=== PATIENT | female | born 1930 | race American Indian/Alaskan Native ===

== ENCOUNTER 2017-11-03 13:50 | Inpatient (IN) | payer MEDICARE, OTHER ==
[2017-11-03 13:59] VITALS: BMI 16.6
--- NOTE | 2017-11-03 14:35 | ED PDOC ---
Arrival/HPI - General Historian: Patient - General Chief Complaint: Abnormal Labs Time Seen by Provider: 11/03/17 14:04 - History of Present Illness Narrative History of Present Illness (Text): 11/03/17 14:10 A 87 year old female, whose past medical history includes diabetes type 2, hypertension, dysphagia, cholecystectomy, EPG (June 2017), and thyroidectomy , is sent to the emergency department for high potassium levels. Patient reports having blood work drawn at home yesterday and results showed patient having high levels of potassium. Patient was instructed to go to the ER immediately. Patient denies any complaints except PEG hurts. [facility] Past Medical History - Provider Review Nursing Documentation Reviewed: Yes - Infectious Disease Hx of Infectious Diseases: None - Cardiac Hx Hypertension: Yes - Endocrine/Metabolic Hx Diabetes Mellitus Type 2: Yes - Gastrointestinal Other/Comment: dysphagia. + gtube - Psychiatric Hx Substance Use: No - Surgical History Hx Cholecystectomy: Yes Hx Thyroidectomy: Yes Other/Comment: gtube insertion - Anesthesia Hx Anesthesia: Yes Hx Anesthesia Reactions: No Hx Malignant Hyperthermia: No Family/Social History - Physician Review Nursing Documentation Reviewed: Yes Family/Social History: No Known Family HX Smoking Status: Former Smoker Hx Alcohol Use: No Hx Substance Use: No Allergies/Home Meds Allergies/Adverse Reactions: Allergies Iodinated Contrast- Oral and IV Dye Allergy (Verified 11/03/17 13:59) RASH Home Medications: Home Meds Medication Instructions Recorded Confirmed No Known Home Med 11/03/17 11/03/17 Review of Systems - Physician Review All systems were reviewed & negative as marked: Yes - Review of Systems Constitutional: absent: Fevers, Night Sweats Respiratory: absent: SOB Cardiovascular: absent: Chest Pain Gastrointestinal: absent: Abdominal Pain, Diarrhea, Nausea, Vomiting Genitourinary Female: Other (PEG tube pain) Physical Exam Vital Signs Reviewed: Yes Temperature: Afebrile Blood Pressure: Hypertensive Pulse: Regular Respiratory Rate: Normal Appearance: Positive for: Well-Appearing Pain Distress: None Mental Status: Positive for: Alert and Oriented X 3 - Systems Exam Head: Present: Atraumatic, Normocephalic Pupils: Present: PERRL Extroacular Muscles: Present: EOMI Conjunctiva: Present: Normal Mouth: Present: Moist Mucous Membranes Neck: Present: Normal Range of Motion Respiratory/Chest: Present: Clear to Auscultation, Good Air Exchange. No: Respiratory Distress, Accessory Muscle Use Cardiovascular: Present: Regular Rate and Rhythm, Normal S1, S2. No: Murmurs Abdomen: No: Tenderness, Distention, Peritoneal Signs Back: Present: Normal Inspection Upper Extremity: Present: Normal Inspection. No: Cyanosis, Edema Lower Extremity: Present: Normal Inspection. No: Edema Neurological: Present: GCS=15, CN II-XII Intact, Speech Normal Skin: Present: Warm, Dry, Normal Color. No: Rashes Psychiatric: Present: Alert, Oriented x 3, Normal Insight, Normal Concentration Vital Signs Temp Pulse Resp BP Pulse Ox 11/03/17 21:14 71 11 L 106/60 11/03/17 18:00 73 18 124/55 L 98 11/03/17 16:00 72 18 144/67 98 11/03/17 14:00 98.8 F 76 18 171/77 H 99 Medical Decision Making - Lab Interpretations I have reviewed the lab results: Yes ED Course and Treatment: 11/03/17 18:27 pt with sweating, blood sugar 30 and ECG SR. (Vishal Morales) 11/03/17 14:15 Impression: 87 year old female sent in for high potassium and complaining of only PEG tube pain. Physical exam is unremarkable. Plan: -- EKG -- Chest X-ray -- Abdominal X-Ray -- Labs -- Reassess and disposition Progress Notes: EKG: Ordered, reviewed, and independently interpreted the EKG. Rate : 67 BPM Rhythm : NSR Interpretation : No ST-segment elevations or depressions, no T-wave inversions, normal intervals. Comparison : No previous EKG for comparison. 11/03/2017 15:08 Chest X-ray IMPRESSION: No active disease. Dictator: Jesus Alberto Kearns MD 11/03/2017 15:09 Abdominal X-Ray IMPRESSION: No active disease. Dictator: Emmy Kearns MD (Arley Jimenez) - Lab Interpretations Lab Results: 11/04/17 14:30 11/04/17 14:30 Lab Results 11/04/17 14:30: Hemoglobin A1c 6.0 11/04/17 14:30: Sodium 135, Potassium 5.4 H, Chloride 96 L, Carbon Dioxide 28, Anion Gap 16, BUN 71 H, Creatinine 2.2 H, Est GFR ( Amer) 26, Est GFR ( Non-Af Amer) 21, Random Glucose 92, Calcium 9.0, Phosphorus 4.5, Magnesium 1.6 L , Total Bilirubin 0.2, AST 48 H, ALT 30, Alkaline Phosphatase 110, Total Protein 7.7, Albumin 4.0, Globulin 3.7, Albumin/Globulin Ratio 1.1 11/04/17 14:30: WBC 4.8, RBC 3.24 L, Hgb 8.9 L, Hct 28.1 L, MCV 86.7, MCH 27.5, MCHC 31.7, RDW 12.8, Plt Count 169, MPV 9.4, Gran % 51.8, Lymph % (Auto) 29.2, [place] % (Auto) 7.5 H, Eos % (Auto) 11.1 H, Baso % (Auto) 0.4, Gran # 2.48, Lymph # (Auto) 1.4, [place] # (Auto) 0.4, Eos # (Auto) 0.5, Baso # (Auto) 0.02 11/04/17 11:05: POC Glucose (mg/dL) 121 H 11/04/17 07:20: POC Glucose (mg/dL) 66 11/03/17 19:39: POC Glucose (mg/dL) 68 11/03/17 19:09: POC Glucose (mg/dL) 117 H 11/03/17 18:16: POC Glucose (mg/dL) 30 L* 11/03/17 16:45: POC Glucose (mg/dL) 66 11/03/17 14:35: Sodium 136, Potassium 5.9 H*, Chloride 95 L, Carbon Dioxide 27, Anion Gap 20, BUN 76 H, Creatinine 2.3 H, Est GFR ( Amer) 24, Est GFR ( Non-Af Amer) 20, Random Glucose 133 H, Calcium 8.9, Total Bilirubin 0.1 L, AST 51 H, ALT 38, Alkaline Phosphatase 126, Lactate Dehydrogenase 512, Total Creatine Kinase 170, Troponin I < 0.01, NT-Pro-B Natriuret Pep 810 H, Total Protein 8.6 H, Albumin 4.6, Globulin 3.9, Albumin/Globulin Ratio 1.2 11/03/17 14:35: PT 12.0, INR 1.05 11/03/17 14:35: WBC 5.9 D, RBC 3.22 L, Hgb 8.9 L, Hct 27.9 L, MCV 86.6, MCH 27.6, MCHC 31.9, RDW 12.8, Plt Count 188, MPV 10.5, Gran % 57.8, Lymph % (Auto) 24.1, [place] % (Auto) 9.6 H, Eos % (Auto) 8.2 H, Baso % (Auto) 0.3, Gran # 3.43, Lymph # (Auto) 1.4, [place] # (Auto) 0.6, Eos # (Auto) 0.5, Baso # (Auto) 0.02 - RAD Interpretation Radiology Orders: 11/03/17 14:15 CHEST PORTABLE [RAD] Stat 11/03/17 14:18 ABDOMEN PORTABLE 2 VIEWS [RAD] Stat - Medication Orders Current Medication Orders: Discontinued Medications Dextrose (Dextrose 50% Inj) 50 ml IVP STAT STA Stop: 11/03/17 15:38 Last Admin: 11/03/17 17:12 Dose: 50 ml IVP Administration Document 11/03/17 17:12 [facility] [address] (Rec: 11/03/17 17:13 [facility] [address] [id number]) Charges for Administration # of IVP Administrations 1 Calcium Gluconate 1,000 mg/ (Sodium Chloride) 110 mls @ 110 mls/hr IVPB ONCE ONE Stop: 11/03/17 16:36 Last Admin: 11/03/17 17:10 Dose: 110 mls/hr eMAR Start Stop Document 11/03/17 17:10 [facility] [address] (Rec: 11/03/17 17:11 [facility] [address] [id number]) Intravenous Solution Start Date 11/03/17 Start Time 17:11 End Date 11/03/17 End time 18:11 Total Infusion Time 60 Insulin Human Regular (Humulin R) 10 units SC ONCE ONE Stop: 11/03/17 15:41 Last Admin: 11/03/17 17:13 Dose: 10 units MAR Blood Glucose Document 11/03/17 17:13 [facility] (Rec: 11/03/17 17:13 [facility] [id number]) Blood Glucose Finger Stick Blood Glucose (70-120) 140 Subcutaneous Administrations Document 11/03/17 17:13 [facility] (Rec: 11/03/17 17:13 [facility] [address] [id number]) Injection Site MAR Injection Site Left Deltoid Charges for Administration # of Subcutaneous Administrations 1 Polyethylene Glycol (Miralax) 17 gm PO DAILY [facility] Last Admin: 11/05/17 10:19 Dose: 17 gm Sodium Bicarbonate (Sodium Bicarbonate 8.4% (50 Meq) Syringe) 50 meq IVP ONCE ONE Stop: 11/03/17 15:38 Last Admin: 11/03/17 17:09 Dose: 50 meq IVP Administration Document 11/03/17 17:09 [facility] (Rec: 11/03/17 17:09 [facility] [id number]) Charges for Administration # of IVP Administrations 1 - Scribe Statement The provider has reviewed the documentation as recorded by the Scribe - Scribe Statement Nitin Alex Provider Scribe Attestation: All medical record entries made by the Scribe were at my direction and personally dictated by me. I have reviewed the chart and agree that the record accurately reflects my personal performance of the history, physical exam, medical decision making, and the department course for this patient. I have also personally directed, reviewed, and agree with the discharge instructions and disposition. (Arley Jimenez) Disposition/Present on Arrival - Present on Arrival Any Indicators Present on Arrival: No History of DVT/PE: No History of Uncontrolled Diabetes: No Urinary Catheter: No History of Decub. Ulcer: No History Surgical Site Infection Following: None - Disposition Have Diagnosis and Disposition been Completed?: Yes Disposition Time: 17:45 Patient Plan: Admission - Disposition Diagnosis: Hyperkalemia, Renal insufficiency Disposition: HOSPITALIZED Condition: FAIR
[2017-11-03 14:43] LABS: BASO # 0.02 K/mm3 (0.0-2.0); BASO % 0.3 % (0.0-3.0); EOS # 0.5 (0.0-0.7); EOS % 8.2 % (1.5-5.0); GRAN # 3.43 (1.4-6.5); GRAN % 57.8 % (50.0-68.0); HEMOGLOBIN 8.9 g/dL (12.0-16.0); LYMPH # 1.4 (1.2-3.4); LYMPH % 24.1 % (22.0-35.0); MEAN CELL VOLUME 86.6 fl (80.0-105.0); MEAN CORPUSCULAR HEMOGLOBIN 27.6 pg (25.0-35.0); MEAN CORPUSCULAR HGB CONC 31.9 g/dl (31.0-37.0); MEAN PLATELET VOLUME 10.5 fl (7.0-11.0); MONO # 0.6 (0.1-0.6); MONO % 9.6 % (1.0-6.0); RBC 3.22 10^6/uL (3.5-6.1); RED CELL DISTRIBUTION WIDTH 12.8 % (11.5-14.5); WHITE BLOOD COUNT 5.9 10^3/ul (4.5-11.0)
[2017-11-03 14:53] LABS: INR 1.05 (0.93-1.08)
[2017-11-03 14:58] LABS: ALB/GLOB RATIO 1.2 (1.1-1.8); ALBUMIN 4.6 g/dL (3.0-4.8); ALT/SGPT 38 U/L (7-56); AST/SGOT 51 U/L (14-36); BLOOD UREA NITROGEN 76 mg/dL (7-21); CALCIUM 8.9 mg/dL (8.4-10.5); GFR AFRICAN-AMERICAN 24; GFR NON-AFRICAN AMERICAN 20
[2017-11-03 15:05] LABS: TROPONIN I < 0.01 ng/mL
--- NOTE | 2017-11-03 15:09 | RAD ---
HISTORY: Weakness COMPARISON: No prior. FINDINGS: LUNGS: No active pulmonary disease. PLEURA: No significant pleural effusion identified, no pneumothorax apparent. CARDIOVASCULAR: Normal. OSSEOUS STRUCTURES: No significant abnormalities. VISUALIZED UPPER ABDOMEN: Normal. OTHER FINDINGS: None. IMPRESSION: No active disease.
--- NOTE | 2017-11-03 15:11 | RAD ---
HISTORY: ileus vs obstruction COMPARISON: No prior. FINDINGS: BOWEL: Normal. No obstruction. No free air. BONES: Normal. OTHER FINDINGS: There is a left-sided gastrostomy tube in place IMPRESSION: No active disease.
[2017-11-03 15:20] LABS: B-TYPE NATRIURETIC PEPTIDE 810 pg/mL (0-450)
[2017-11-03] MEDS ORDERED: Sodium Bicarbonate (8.4%) 50 Meq Syringe IVP ONE (15:37)
[2017-11-03] MEDS ORDERED: Dextrose 50% SYRINGE Inj (50 ml) IVP STA (15:37)
[2017-11-03] MEDS ORDERED: Insulin Regular 1 UNITS/0.01 ML ML SC ONE (15:40)
--- NOTE | 2017-11-03 18:22 | CARD ---
APPROVED REPORT EKG Measurement Heart [id number] <Conclusion> Normal sinus rhythm Normal ECG
--- NOTE | 2017-11-04 08:53 | CARD ---
APPROVED REPORT EKG Measurement Heart [id number] <Conclusion> Sinus rhythm with premature supraventricular complexes Nonspecific ST and T wave abnormality High Voltage-LVH.
[2017-11-04 14:37] LABS: BASO # 0.02 K/mm3 (0.0-2.0); BASO % 0.4 % (0.0-3.0); EOS # 0.5 (0.0-0.7); EOS % 11.1 % (1.5-5.0); GRAN # 2.48 (1.4-6.5); GRAN % 51.8 % (50.0-68.0); HEMOGLOBIN 8.9 g/dL (12.0-16.0); LYMPH # 1.4 (1.2-3.4); LYMPH % 29.2 % (22.0-35.0); MEAN CELL VOLUME 86.7 fl (80.0-105.0); MEAN CORPUSCULAR HEMOGLOBIN 27.5 pg (25.0-35.0); MEAN CORPUSCULAR HGB CONC 31.7 g/dl (31.0-37.0); MEAN PLATELET VOLUME 9.4 fl (7.0-11.0); MONO # 0.4 (0.1-0.6); MONO % 7.5 % (1.0-6.0); RBC 3.24 10^6/uL (3.5-6.1); RED CELL DISTRIBUTION WIDTH 12.8 % (11.5-14.5); WHITE BLOOD COUNT 4.8 10^3/ul (4.5-11.0)
[2017-11-04 14:52] LABS: ALB/GLOB RATIO 1.1 (1.1-1.8)
[2017-11-04] MEDS ORDERED: POLYETHYLENE GLYCOL 3350 17 GM/Dose PACKET PO SCH (16:15)
[2017-11-04 19:35] LABS: IRON 25 ug/dL (45-180)
[2017-11-04 19:44] LABS: % IRON SATURATION 10 % (20-55); TOTAL IRON BINDING CAPACITY 257 ug/dL (265-497)
--- NOTE | 2017-11-05 01:01 | HP ---
HISTORY OF PRESENT ILLNESS: Patient is an 87-year-old female referred to the emergency department for an elevated potassium level of 6.2. Patient's potassium level in the emergency department was 5.9 and patient was admitted to the telemetry unit for further observation and management. PAST MEDICAL HISTORY: Includes history of esophageal stricture. She is status post PEG placement and has been receiving Jevity 1.2, 240 mL via PEG approximately three times daily as an outpatient. Patient's past medical history includes hypertension, type 2 diabetes mellitus, atherosclerotic cardiovascular disease, status post [place] at age 50. PAST SURGICAL HISTORY: Includes thyroidectomy. MEDICATIONS: Patient is on no current medications. REVIEW OF SYSTEMS: She has had significant weight loss. Denies any nausea. No vomiting. No diarrhea. No melena. No bright red blood per rectum. ALLERGIES: PATIENT REPORTS ALLERGIES TO IODINATED CONTRAST. SOCIAL HISTORY: There is no history of alcohol or tobacco use. Patient lives with her daughter. She is independent with ADLs. FAMILY HISTORY: Noncontributory. PHYSICAL EXAMINATION: GENERAL: The patient is a well-developed, cachectic female, in no acute distress. VITAL SIGNS: Blood pressure 120/65, pulse 58, temperature 98.7, respiratory rate 18. HEENT: Head is normocephalic, atraumatic. Pupils equal, round, reactive to light. Extraocular movements intact. NECK: Supple with no thyromegaly. No carotid bruit. No adenopathy. LUNGS: Clear. HEART: Regular rate and rhythm. ABDOMEN: Soft, nontender. Gastrostomy tube is intact. EXTREMITIES: Without cyanosis, clubbing or edema. There is marked muscle wasting and atrophy bilaterally. NEUROLOGIC: Patient is awake and oriented x3 without focal sensory or motor deficits. SKIN: Warm and dry. LABORATORY DATA: WBC is 5.9, hemoglobin 8.9, hematocrit 27.9. Chemistries: Sodium 136, potassium 5.9, chloride 95, BUN 76, creatinine 2.3, glucose 133. BNP is elevated at 810. Total protein 8.6. Chest x-ray shows no active disease. IMPRESSION: 1. Hyperkalemia, rule out acute renal insufficiency versus secondary to enteral feeding. 2. Esophageal stricture, status post gastrostomy placement. 3. Type 2 diabetes mellitus. 4. History of hypertension. 5. Coronary artery disease, history of myocardial infarction in the remote past. PLAN: The patient will be admitted to telemetry unit. We will monitor potassium levels. We will obtain renal consult as well as GI consult. We will change enteral feeding to Nepro 240 mL three times daily. MINNA Mcgill MD
--- NOTE | 2017-11-05 03:44 | CON ---
DATE: REASON FOR CONSULTATION: Hyperkalemia, acute kidney injury. HISTORY OF PRESENT ILLNESS: An 87-year-old lady, previously unknown to me, was brought to the emergency room because of finding of hyperkalemia as outpatient. The patient reports that she is on PEG tube feeding for the last 5 months because of an esophageal stricture. She is n.p.o. She denies any diarrhea. She complains of constipation. In the emergency room, she was found to have a potassium of 5.4. She was found to have elevated BUN of 71 and a creatinine of 2.2. Consultation is requested for the hyperkalemia. PAST MEDICAL AND SURGICAL HISTORY: NIDDM, but not on medication right now; hypertension, esophageal stricture?, n.p.o. status, PEG placement 5 months ago, thyroidectomy? FAMILY HISTORY: Noncontributory. SOCIAL HISTORY: Ex-smoker, quit in 1980, smoked for about 15 years, 3 packs per day; no alcohol, no IV drug abuse. ALLERGIES: IODINATED CONTRAST. MEDICATIONS AT HOME: None, the patient was on Jevity. REVIEW OF SYSTEMS: All systems are reviewed, pertinent positives as mentioned in history of presenting illness, rest unremarkable. PHYSICAL EXAMINATION: GENERAL: Thinly built elderly lady, lying in bed, in no acute distress. VITAL SIGNS: Blood pressure 120/65, heart rate 58, respiratory rate 16, temperature 98. HEENT: Normocephalic, atraumatic. NECK: Supple, no JVD. LUNGS: Bilateral equal entry, bilateral equal expansion, no rales. CARDIAC: S1 and S2, regular rate and rhythm, no murmur, no rub. ABDOMEN: Soft, nondistended, nontender, positive PEG, bowel sounds present. EXTREMITIES: No lower extremity edema. LABORATORY DATA: WBC 4.8, hemoglobin 8.9, hematocrit 28, platelets 169. Sodium 135, potassium 5.4, chloride 96, CO2 of 28, BUN 71, creatinine 2.2, glucose 92, calcium 9, phosphorus 4.5, magnesium 1.6, albumin 4. ASSESSMENT AND PLAN: 1. Hyperkalemia, likely secondary to tube feeds that she is getting in the setting of chronic kidney disease stage IV. 2. Mild prerenal azotemia. 3. Advanced chronic kidney disease stage IV. 4. Severe anemia. 5. ? Secondary hyperparathyroidism. 6. Underlying malignancy ? PLAN: 1. Agree with changing feeding . 2. MiraLax p.r.n. for constipation. 3. Check iron stores. 4. Check stool occults. 5. Check intact PTH. 6. May need Aranesp, check hemoglobin A1c. 7. Feed water via PEG. Thank you for the courtesy of this consultation. We will follow this patient closely with you. Susan Mcclure MD
[2017-11-05 06:41] VITALS: RESP 18
[2017-11-05 07:00] LABS: BASO # 0.03 K/mm3 (0.0-2.0); BASO % 0.5 % (0.0-3.0); EOS # 0.7 (0.0-0.7); EOS % 11.7 % (1.5-5.0); GRAN # 2.62 (1.4-6.5); GRAN % 43.7 % (50.0-68.0); LYMPH # 2.2 (1.2-3.4); LYMPH % 36.9 % (22.0-35.0); MEAN CELL VOLUME 86.1 fl (80.0-105.0); MEAN CORPUSCULAR HEMOGLOBIN 27.2 pg (25.0-35.0); MEAN CORPUSCULAR HGB CONC 31.6 g/dl (31.0-37.0); MEAN PLATELET VOLUME 10.4 fl (7.0-11.0); MONO # 0.4 (0.1-0.6); MONO % 7.2 % (1.0-6.0); RBC 3.31 10^6/uL (3.5-6.1); RED CELL DISTRIBUTION WIDTH 12.8 % (11.5-14.5)
[2017-11-05 07:38] LABS: ALBUMIN 4.1 g/dL (3.0-4.8); CALCIUM 9.1 mg/dL (8.4-10.5)
--- NOTE | 2017-11-05 11:22 | CP.PCM.CON ---
History of Present Illness - History of Present Illness History of Present Illness: GI Consult note. Dr. Bain 87yo F with PMHx of DM, HTN, Dysphagia, [place] at age 50, here secondary to electrolyte abnormality. Patient states that she has had an esophageal stricture with unable to tolerate PO intake. She has been worked up at [facility] for this and has obtained a surgical gastrostomy for feeding placed in June 2017. She followed up with her pMD, Dr. Kem King for routine blood work and was told to go to the hospital for further evaluation. Upon arrival to the ER, she was found to be hyperkalemic (5.9). She denies any symptoms. No N/V/D. No Abd pain. No F/C. no sick contacts. No diarrhea. PMD: Dr. Elizabeth King PMHx: DM, HTN, Dysphagia secondary to esophageal stricture, [place] at age 50 PSHx: Open Gastrostomy Jun 2017, Thyroidectomy Social Hx: Denies Tobacco, Denies ETOH, Denies Drugs. Lives with daughter Review of Systems - Review of Systems All systems: reviewed and no additional remarkable complaints except - Constitutional Constitutional: absent: Anorexia, Chills, Fever, Weakness - Cardiovascular Cardiovascular: absent: Chest Pain, Dyspnea - Gastrointestinal Gastrointestinal: absent: Diarrhea, Nausea, Vomiting Past Patient History - Infectious Disease Hx of Infectious Diseases: None - Past Social History Smoking Status: Former Smoker - CARDIAC Hx Cardiac Disorders: Yes Hx Hypercholesterolemia: Yes Hx Hypertension: Yes - ENDOCRINE/METABOLIC Hx Diabetes Mellitus Type 2: Yes - MUSCULOSKELETAL/RHEUMATOLOGICAL Hx Falls: No - GASTROINTESTINAL Other/Comment: dysphagia. + gtube - PSYCHIATRIC Hx Substance Use: No - SURGICAL HISTORY Hx Surgeries: Yes Hx Cholecystectomy: Yes - ANESTHESIA Hx Anesthesia: Yes Hx Anesthesia Reactions: No Hx Malignant Hyperthermia: No Meds Allergies/Adverse Reactions: Allergies Allergy/AdvReac Type Severity Reaction Status Date / Time Iodinated Contrast- Oral and Allergy RASH Verified 11/03/17 13:59 IV Dye - Medications Medications: Current Medications Polyethylene Glycol (Miralax) 17 gm PO DAILY [facility] Last Admin: 11/05/17 10:19 Dose: 17 gm Physical Exam - Constitutional Appears: Non-toxic, No Acute Distress, Cachectic - Head Exam Head Exam: ATRAUMATIC, NORMAL INSPECTION, NORMOCEPHALIC - Eye Exam Eye Exam: EOMI, Normal appearance - ENT Exam ENT Exam: Mucous Membranes Moist - Respiratory Exam Respiratory Exam: NORMAL BREATHING PATTERN. absent: Accessory Muscle Use, Respiratory Distress - Cardiovascular Exam Cardiovascular Exam: RRR. absent: JVD - GI/Abdominal Exam GI & Abdominal Exam: Soft. absent: Distended, Firm, Guarding, Rebound, Tenderness Additional comments: Gastrostomy tube in place. Surgical scars well healed - Extremities Exam Extremities exam: Positive for: normal inspection. Negative for: calf tenderness - Neurological Exam Neurological exam: Alert, Oriented x3 - Skin Skin Exam: Dry, Intact, Warm Results - Vital Signs Recent Vital Signs: Last Vital Signs Temp 98.1 F 11/05/17 06:00 Pulse 73 11/05/17 06:00 Resp 18 11/05/17 06:00 BP 116/54 L 11/05/17 06:00 Pulse Ox 98 11/05/17 06:00 - Labs Result Diagrams: 11/05/17 06:30 11/05/17 06:30 Labs: Laboratory Results - last 24 hr 11/04/17 11/04/17 11/04/17 16:04 18:30 21:39 WBC RBC Hgb Hct MCV MCH MCHC RDW Plt Count MPV Gran % Lymph % (Auto) [place] % (Auto) Eos % (Auto) Baso % (Auto) Gran # Lymph # (Auto) [place] # (Auto) Eos # (Auto) Baso # (Auto) Sodium Potassium Chloride Carbon Dioxide Anion Gap BUN Creatinine Est GFR ( Amer) Est GFR (Non-Af Amer) POC Glucose (mg/dL) 152 H 175 H Random Glucose Calcium Iron 25 L TIBC 257 L % Saturation 10 L Total Bilirubin AST ALT Alkaline Phosphatase Total Protein Albumin Globulin Albumin/Globulin Ratio 11/05/17 11/05/17 11/05/17 06:30 06:30 07:10 WBC 6.0 D RBC 3.31 L Hgb 9.0 L Hct 28.5 L MCV 86.1 MCH 27.2 MCHC 31.6 RDW 12.8 Plt Count 178 MPV 10.4 Gran % 43.7 L Lymph % (Auto) 36.9 H [place] % (Auto) 7.2 H Eos % (Auto) 11.7 H Baso % (Auto) 0.5 Gran # 2.62 Lymph # (Auto) 2.2 [place] # (Auto) 0.4 Eos # (Auto) 0.7 Baso # (Auto) 0.03 Sodium 137 Potassium 5.1 H Chloride 98 Carbon Dioxide 25 Anion Gap 19 BUN 72 H Creatinine 2.2 H Est GFR ( Amer) 26 Est GFR (Non-Af Amer) 21 POC Glucose (mg/dL) 73 Random Glucose 83 Calcium 9.1 Iron TIBC % Saturation Total Bilirubin 0.2 AST 55 H ALT 38 Alkaline Phosphatase 120 Total Protein 8.2 Albumin 4.1 Globulin 4.1 Albumin/Globulin Ratio 1.0 L Assessment & Plan - Assessment and Plan (Free Text) Assessment: 87yo F with Hx of esophageal stricture. s/p Gastrostomy for feeding. Here for evaluation of hyperkalemia - Abd Xray unremarkable - CXray unremarkable Plan: - Awaiting work up reports from recent [facility] hospitalization - Jevity Tube feedings changed to Nephro - Hyperkalemia improving Further recs as per Dr. Odell Duffy PGY1
[2017-11-05 11:40] VITALS: O2SAT 97
[2017-11-05 12:33] VITALS: BP 116/64; PULSE 72; TEMP 98.7
--- NOTE | 2017-11-05 22:46 | PN ---
DATE: 11/05/2017 SUBJECTIVE: Patient is seen sitting in bed. She is awake, she is alert, she is comfortable. PHYSICAL EXAMINATION: GENERAL: Elderly lady, sitting in bed. VITAL SIGNS: Blood pressure 116/64, heart rate 72, respiratory rate 18, temperature 98.7. HEENT: Normocephalic, atraumatic, positive pallor. NECK: Supple, no JVD. LUNGS: Bilateral equal air entry, bilateral equal expansion, no rales. CARDIAC: S1, S2, regular rate and rhythm. No murmur, no rub. ABDOMEN: Soft, nondistended, nontender, bowel sounds present. EXTREMITIES: 2+ pitting edema of the lower extremities. INTAKE AND OUTPUT: Not charted. LABORATORY DATA: WBC 6, hemoglobin 9, hematocrit 28.5, platelets 178. Sodium 137, potassium 5.1, chloride 98, CO2 25, BUN 72, creatinine 2.2, glucose 83, calcium 9.1. AST 55, ALT 38. MEDICATIONS: None. ASSESSMENT: 1. Hyperkalemia, resolving, secondary to feeding. 2. Chronic kidney disease, stage IV. 3. Esophageal stricture. 4. Hypertension. PLAN: 1. Continue Nepro as her feeding. 2. Monitor potassium as outpatient. 3. In light of her chronic kidney disease, stage IV, follow up with Nephrology as outpatient. Susan Mcclure MD
== END 2017-11-05 15:02 | disposition home or self-care (01) | DRG 641 ==
LOC: ED 13:50 → ERH 16:24 → 2RSO 22:33 → OBSVTOIN 11-04 15:05
PROVIDERS: ADMIT Internal Medicine; ATTEND Internal Medicine
PROC: 3E0G76Z Introduction of Nutritional Substance into Upper GI, Via Natural or Artificial Opening (ICD-10-PCS; principal; 2017-11-05)
DX: E87.5 Hyperkalemia (principal); N18.4 Chronic kidney disease, stage 4 (severe); K22.2 Esophageal obstruction; I12.9 Hypertensive chronic kidney disease with stage 1 through stage 4 chronic kidney disease, or unspecified chronic kidney disease; E11.22 Type 2 diabetes mellitus with diabetic chronic kidney disease; I25.10 Atherosclerotic heart disease of native coronary artery without angina pectoris; K59.00 Constipation, unspecified; D64.9 Anemia, unspecified; E78.00 Pure hypercholesterolemia, unspecified; Z93.1 Gastrostomy status; I25.2 Old myocardial infarction; Z90.49 Acquired absence of other specified parts of digestive tract; Z87.891 Personal history of nicotine dependence

== ENCOUNTER 2018-01-13 13:32 | Emergency (ER) | payer MEDICARE, OTHER ==
[2018-01-13 14:22] VITALS: BMI 15.3
--- NOTE | 2018-01-13 15:15 | ED PDOC ---
Arrival/HPI - General Chief Complaint: GI Problem Time Seen by Provider: 01/13/18 15:06 Historian: Patient - History of Present Illness Narrative History of Present Illness (Text): 01/13/18 15:07 87 year old female, whose past medical history includes diabetes, hypertension, dysphagia, cholecystectomy, and thyroidectomy, who presents to the Emergency department for gastrostomy tube evaluation. Patient was seen by Dr. Bain this morning, who sent patient to the Emergency department for further evaluation. Patient denies any fever, chills, abdominal pain, neck pain, back pain, chest pain, shortness of breath, or any other complaints. Time/Duration: Prior to Arrival Symptom Onset: Sudden Symptom Course: Unchanged Activities at Onset: Light Past Medical History - Provider Review Nursing Documentation Reviewed: Yes - Infectious Disease Hx of Infectious Diseases: None - Reproductive Menopause: Yes - Cardiac Hx Hypertension: Yes - Endocrine/Metabolic Hx Diabetes Mellitus Type 2: Yes - Musculoskeletal/Rheumatological Hx Falls: No - Gastrointestinal Other/Comment: dysphagia. + gtube - Psychiatric Hx Substance Use: No - Surgical History Hx Cholecystectomy: Yes Hx Thyroidectomy: Yes Other/Comment: gtube insertion - Anesthesia Hx Anesthesia: Yes Hx Anesthesia Reactions: No Hx Malignant Hyperthermia: No Family/Social History - Physician Review Nursing Documentation Reviewed: Yes Family/Social History: Unknown Family HX Smoking Status: Former Smoker Hx Alcohol Use: No Hx Substance Use: No Allergies/Home Meds Allergies/Adverse Reactions: Allergies Iodinated Contrast- Oral and IV Dye Allergy (Verified 11/03/17 13:59) RASH Home Medications: Home Meds Medication Instructions Recorded Confirmed No Known Home Med 11/03/17 11/03/17 Review of Systems - Physician Review All systems were reviewed & negative as marked: Yes - Review of Systems Constitutional: Normal Eyes: Normal ENT: Normal Respiratory: Normal. absent: SOB, Cough Cardiovascular: Normal. absent: Chest Pain Gastrointestinal: Normal. absent: Abdominal Pain, Diarrhea, Nausea Genitourinary Female: Normal. absent: Dysuria, Frequency, Hematuria Musculoskeletal: Normal. absent: Back Pain, Neck Pain Skin: Normal. absent: Rash Neurological: Normal. absent: Headache, Dizziness Endocrine: Normal Hemo/Lymphatic: Normal Psychiatric: Normal Physical Exam - Physical Exam Narrative Physical Exam (Text): 01/13/18 15:16 Constitutional: No acute distress. Head: Normocephalic. Atraumatic. Eyes: PERRL. ENT: Moist mucous membranes. Neck: Supple. Cardiovascular: Regular rate. Chest: No tenderness. Respiratory: Clear to auscultation bilaterally. GI: Soft. Nontender. Nondistended. Gastrostomy tube in place. Back: No CVA tenderness. Musculoskeletal: No tenderness or swelling of extremities. Skin: No rash. Neurologic: Alert, no focal deficit. Vital Signs Reviewed: Yes Vital Signs Temp Pulse Resp BP Pulse Ox 01/13/18 16:18 98.0 F 74 20 130/62 99 01/13/18 14:21 98.3 F 73 18 117/61 91 L Temperature: Afebrile Blood Pressure: Normal Pulse: Regular Respiratory Rate: Normal Appearance: Positive for: Well-Appearing, Non-Toxic, Comfortable Pain Distress: None Mental Status: Positive for: Alert and Oriented X 3 Medical Decision Making ED Course and Treatment: 01/13/18 15:17 Impression: 87 year old female presents to the Emergency department sent by Dr. Bain for gastrostomy tube evaluation. Plan: -- CT Abdomen/Pelvis -- Reassess and disposition Progress Notes: 01/13/18 16:10 Abdomen/Pelvis CT reviewed, shows: LOWER THORAX: Marginal elevation of left hemidiaphragm noted. Linear atelectasis or fibrosis appreciated both lung bases. LIVER: Unremarkable. No gross lesion or ductal dilatation. GALLBLADDER AND BILE DUCTS: Prior cholecystectomy. PANCREAS: Unremarkable. No gross lesion or ductal dilatation. SPLEEN: Unremarkable. ADRENALS: Unremarkable. No mass. KIDNEYS AND URETERS: 2.7 cm cyst exophytic off the upper pole right kidney measuring 9 Hounsfield units. No hydronephrosis bilaterally. No large solid mass. Vascular calcifications favored over intrarenal calculi bilaterally. VASCULATURE: Gross aortic atherosclerosis, non aneurysmal. Atherosclerotic changes are also seen involving the central abdominal arterial vasculature and the iliofemoral system bilaterally. BOWEL: Gas and stool is identified placed in the left upper quadrant terminating in the region of the gastric fundus. No free intra peritoneal gas appreciable. Small and large bowel appear uninvolved as imaged, including the transverse colon. . No bowel obstruction appreciated. APPENDIX: Unremarkable. Normal appendix. PERITONEUM: Unremarkable. No free fluid. No free air. LYMPH NODES: Unremarkable. No enlarged lymph nodes. BLADDER: Unremarkable. REPRODUCTIVE: Unremarkable. BONES: No acute fracture. OTHER FINDINGS: None. IMPRESSION: Gastrostomy tube is appreciated in situ at the gastric fundus as discussed above without overt sign of small large-bowel involvement. Lesser additional findings from other or organ systems as discussed above. Discussed case with Dr. Bain. Tube flushes well. Dressed with gauze. Dr. Bain states patient will see him in office. - RAD Interpretation Radiology Orders: 01/13/18 15:06 ABD & PELVIS W/O PO OR IV CONT [CT] Stat - Scribe Statement The provider has reviewed the documentation as recorded by the Scribe Nancy Swanson All medical record entries made by the Scribe were at my direction and personally dictated by me. I have reviewed the chart and agree that the record accurately reflects my personal performance of the history, physical exam, medical decision making, and the department course for this patient. I have also personally directed, reviewed, and agree with the discharge instructions and disposition. Disposition/Present on Arrival - Present on Arrival Any Indicators Present on Arrival: No History of DVT/PE: No History of Uncontrolled Diabetes: No Urinary Catheter: No History of Decub. Ulcer: No History Surgical Site Infection Following: None - Disposition Have Diagnosis and Disposition been Completed?: Yes Diagnosis: Gastrostomy in place Disposition: HOME/ ROUTINE Disposition Time: 16:00 Patient Plan: Discharge Condition: STABLE Discharge Instructions (ExitCare): How to Care for Your PEG Tube Referrals: Samantha Bain MD [Medical Doctor] - Follow up with primary Forms: [employer] (Citizen [place])
--- NOTE | 2018-01-13 16:01 | CT ---
PROCEDURE: CT Abdomen and Pelvis without intravenous contrast HISTORY: recent gastrostomy tube, evaluate placement COMPARISON: None. TECHNIQUE: Helical CT of the abdomen and pelvis was performed without oral or intravenous contrast as per referring physician request. Contrast dose: None Radiation dose: Total exam DLP = 190.52 mGy-cm. This CT exam was performed using one or more of the following dose reduction techniques: Automated exposure control, adjustment of the mA and/or kV according to patient size, and/or use of iterative reconstruction technique. FINDINGS: LOWER THORAX: Marginal elevation of left hemidiaphragm noted. Linear atelectasis or fibrosis appreciated both lung bases. LIVER: Unremarkable. No gross lesion or ductal dilatation. GALLBLADDER AND BILE DUCTS: Prior cholecystectomy. PANCREAS: Unremarkable. No gross lesion or ductal dilatation. SPLEEN: Unremarkable. ADRENALS: Unremarkable. No mass. KIDNEYS AND URETERS: 2.7 cm cyst exophytic off the upper pole right kidney measuring 9 Hounsfield units. No hydronephrosis bilaterally. No large solid mass. Vascular calcifications favored over intrarenal calculi bilaterally. VASCULATURE: Gross aortic atherosclerosis, non aneurysmal. Atherosclerotic changes are also seen involving the central abdominal arterial vasculature and the iliofemoral system bilaterally. BOWEL: Gas and stool is identified placed in the left upper quadrant terminating in the region of the gastric fundus. No free intra peritoneal gas appreciable. Small and large bowel appear uninvolved as imaged, including the transverse colon. . No bowel obstruction appreciated. APPENDIX: Unremarkable. Normal appendix. PERITONEUM: Unremarkable. No free fluid. No free air. LYMPH NODES: Unremarkable. No enlarged lymph nodes. BLADDER: Unremarkable. REPRODUCTIVE: Unremarkable. BONES: No acute fracture. OTHER FINDINGS: None. IMPRESSION: Gastrostomy tube is appreciated in situ at the gastric fundus as discussed above without overt sign of small large-bowel involvement. Lesser additional findings from other or organ systems as discussed above.
[2018-01-13 16:19] VITALS: BP 130/62; PULSE 74; RESP 20; TEMP 98; O2SAT 99
== END 2018-01-13 17:56 | disposition home or self-care (01) ==
LOC: ED 13:32
DX: Z93.1 Gastrostomy status (principal); E11.9 Type 2 diabetes mellitus without complications; I10 Essential (primary) hypertension; Z87.891 Personal history of nicotine dependence